=== PATIENT | male | born 1950 | race Caucasian/White ===

== ENCOUNTER 2024-01-24 13:21 | Outpatient (CLI) | payer MEDICARE, OTHER, SELFPAY ==
--- NOTE | 2024-01-24 06:00 | DI.RAD_ITS ---
Exam(s) XR PAIN CLINIC LUMBAR SP 2V EXAM: XR PAIN CLINIC LUMBAR SP 2V CLINICAL HISTORY: Dx: Lumbar Spondylosis. TECHNIQUE: Fluoroscopy was provided for the referring physician for guidance with performing pain cl inic injection procedure. COMPARISON: No exams were available for comparison FINDINGS: Please see procedure note for details. Fluoro time: 16.3 seconds RADIATION DOSE DELIVERED: penny Fermin=8.82 mGy
[2024-01-24 13:40] VITALS: BP 165/77; PULSE 57; RESP 20; TEMP 36.7; O2SAT 96
[2024-01-24 14:08] VITALS: O2SAT 97
[2024-01-24 14:10] VITALS: O2SAT 98
[2024-01-24 14:20] VITALS: O2SAT 99
--- NOTE | 2024-01-24 14:25 | PDOC.PAIN ---
Date of service: 01/24/24 Time of Service: 14:27 Pain Managment Procedure Note Procedure Note Procedure Note: Lumbar Medial Branch Block ? Location: Bilateral Medial Branches ? Levels: L3,4,5? (L4-5, L5-S1 FACET) ? 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 Post-procedure Diagnosis:? The same as above ? Sedation: NONE? Estimated blood loss:? less than 2 cc ? Surgeon:? Rashawn Lawler MD COMMENT: PRE PROCEDURE PAIN SCORE: 5/10 ? Procedure Detail:? The procedure and potential risks were explained to the patient and informed written consent was obtained. The patient was escorted to the procedure room and placed in the prone position. Pillows were utilized for proper positioning and comfort.? Time out was performed in procedure room with nursing staff confirming the patient's identity, procedure to be performed, allergies, and any blood thinning or anti-platelet medications. The patient's lower back was prepped with chlorhexidine and draped in a sterile fashion. Sterile technique was maintained throughout the procedure.? Sterile gloves were used, a face mask was worn, and new single dose vials of all medications were used with the top being swabbed with alcohol and given time to dry prior to withdrawal of medication.? A left AND right-sided oblique fluoroscopic view was obtained, with visualization of the: ?RIGHT and LEFT L3,4 and DORSAL RAMUS L5 AT SACRAL ALA ? junction of the transverse process and superior articular process. Lidocaine 1% was used to anesthetize the skin. A 22-gauge Quincke needle was advanced along the superior margin of the transverse process and lateral to the articular process.? It was directed inferiorly and medially so that the tip struck the junction of the base of the transverse process and the superior articular process. The needle was then walked over the superior aspect of the transverse process and advanced slightly along the course of the L3,4,5 medial branch nerves. Proper placement was verified in A/P, oblique and lateral views under fluoroscopy. At this location, following negative aspiration, 0.5cc 0.5% bupivacaine was injected.? The patient tolerated the procedure well and was transported to the recovery area for observation and discharge instructions. Permanent images saved and recorded. Follow-up:? The patient will return in 2 weeks for confirmatory LMBBs if they? meet the criteria from today's procedure lasting for at least 2 hours.? COMMENT:Pain went from 5/10 to 1/10. Before the patient left patient had greater than 80% pain relief. CONSIDER LESI IF RADICULAR PAIN PREDOMINANT. CONSIDER RETURN TO DR. MITTAL
[2024-01-24] MEDS: Nerve Block Tray 1 EACH MC (14:27)
[2024-01-24] MEDS: Bupivacaine 0.5% Pres-Free 10 ML VIAL IJ (14:27)
== END 2024-01-24 13:22 | disposition home or self-care (01) ==
LOC: PC 13:24
PROVIDERS: PCP Dermatology; Visit Provider Anesthesiology Pain Medicine
DX: M54.50 Low back pain, unspecified (principal); M47.817 Spondylosis without myelopathy or radiculopathy, lumbosacral region; M47.816 Spondylosis without myelopathy or radiculopathy, lumbar region
CPT/HCPCS: 00123; 64493; 64494; 72100; J0665

== ENCOUNTER 2024-03-27 08:25 | Outpatient (CLI) | payer MEDICARE, OTHER, SELFPAY ==
--- NOTE | 2024-03-27 06:00 | DI.RAD_ITS ---
Exam(s) XR PAIN CLINIC LUMBAR SP 2V EXAM: XR PAIN CLINIC LUMBAR SP 2V CLINICAL HISTORY: Dx: Lumbar Spondylosis TECHNIQUE: 2D and realtime digital imaging was performed. CONTRAST MATERIAL: Refer to procedure report. COMPARISON: No exams were available for comparison FINDINGS: Fluoroscopy was provided for Dr. Lawler during the performance of a bilateral lumbar medial branch block. Please refer to the procedure report for complete details. Ka,r=12.8 mGy IMPRESSION: RADIATION DOSE DELIVERED: 0.0 0.0 0
[2024-03-27 08:42] VITALS: BP 150/69; PULSE 61; RESP 20; TEMP 37; O2SAT 96
--- NOTE | 2024-03-27 08:43 | PDOC.PAIN ---
Date of service: 03/27/24 Time of Service: 09:17 Pain Managment Procedure Note Procedure Note Procedure Note: Location: Bilateral Medial Branches ? Levels: L3,4,5? (L4-5, L5-S1 FACET) ? 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 Post-procedure Diagnosis:? The same as above ? Sedation: NONE? Estimated blood loss:? less than 2 cc ? Surgeon:? Rashawn Lawler MD COMMENT: Patient had? GREATER THAN 80 % relief after the first medial branch block for greater than the duration of the local anesthetic.? PRE PROCEDURE PAIN SCORE: 4/10 ? Procedure Detail:? The procedure and potential risks were explained to the patient and informed written consent was obtained. The patient was escorted to the procedure room and placed in the prone position. Pillows were utilized for proper positioning and comfort.? Time out was performed in procedure room with nursing staff confirming the patient's identity, procedure to be performed, allergies, and any blood thinning or anti-platelet medications. The patient's lower back was prepped with chlorhexidine and draped in a sterile fashion. Sterile technique was maintained throughout the procedure.? Sterile gloves were used, a face mask was worn, and new single dose vials of all medications were used with the top being swabbed with alcohol and given time to dry prior to withdrawal of medication.? A left and right-sided oblique fluoroscopic view was obtained, with visualization of the: ?RIGHT and LEFT L3,4 and DORSAL RAMUS L5 AT SACRAL ALA ? junction of the transverse process and superior articular process. Lidocaine 1% was used to anesthetize the skin. A 22-gauge Quincke needle was advanced along the superior margin of the transverse process and lateral to the articular process.? It was directed inferiorly and medially so that the tip struck the junction of the base of the transverse process and the superior articular process. The needle was then walked over the superior aspect of the transverse process and advanced slightly along the course of the L3,4,5 medial branch nerves. Proper placement was verified in A/P, oblique and lateral views under fluoroscopy. At this location, following negative aspiration, 0.5cc 2% lidocaine was injected.? The patient tolerated the procedure well and was transported to the recovery area for observation and discharge instructions. Permanent images saved and recorded. Follow-up:?? Will plan to proceed with lumbar medial branch RFA if the patient gets good relief from today's procedure lasting for at least 2 hours. COMMENT:Pain went from 4/10 to 1/10. Before the patient left patient had 60% pain relief. Consider transforaminal steroid injections at L5 symptoms are radicular and consider referral back to Dr. Delong.
[2024-03-27 09:00] VITALS: O2SAT 98
[2024-03-27 09:10] VITALS: O2SAT 99
[2024-03-27] MEDS: Nerve Block Tray 1 EACH MC (09:17)
[2024-03-27] MEDS: Lidocaine 2% Pres-Free 5 ML VIAL IJ (09:17)
== END 2024-03-27 08:26 | disposition home or self-care (01) ==
LOC: PC 08:25
PROVIDERS: PCP Dermatology; Visit Provider Anesthesiology Pain Medicine
DX: M54.50 Low back pain, unspecified (principal); M47.817 Spondylosis without myelopathy or radiculopathy, lumbosacral region; M47.816 Spondylosis without myelopathy or radiculopathy, lumbar region
CPT/HCPCS: 00123; 64493; 64494; 72100